=== PATIENT | female | born 1995 | race Two or more races ===

== ENCOUNTER 2019-05-03 21:17 | Emergency (ER) | payer OTHER ==
--- NOTE | 2019-05-03 23:15 | ED ---
Syncope/Near Syncope - HPI Summary HPI Summary: This patient is a 23 year old female presenting to [facility] with a chief complaint of syncope one hour ago. She states she was at dinner when she experienced dizziness, blurred vision, skin diaphoresis, muffled hearing for about 5 minutes and then passed out. She denies CP, SOB, and vomiting. She states she feels good now but reports a minor headache. - History Of Current Complaint Chief Complaint: EDSyncope Time Seen by Provider: 05/03/19 22:11 Hx Obtained From: Patient Onset/Duration: Sudden Onset, Lasting Minutes Context: Unwitnessed Associated Signs And Symptoms: Diaphoresis, Dizzy, Headache - Allergies/Home Medications Allergies/Adverse Reactions: Allergies Allergy/AdvReac Type Severity Reaction Status Date / Time No Known Allergies Allergy Verified 05/03/19 21:23 Home Medications: Home Medications NK [No Home Medications Reported] 05/03/19 [History Confirmed 05/03/19] PMH/Surg Hx/FS Hx/Imm Hx Cardiovascular History: Denies: Hx Coronary Artery Disease - Immunization History Immunizations Up to Date: Yes Infectious Disease History: No Infectious Disease History: Denies: Traveled Outside the [place] in Last 30 Days - Family History Known Family History: Negative: Cardiac Disease, Hypertension - Social History Alcohol Use: Weekly Substance Use Type: Reports: Marijuana Smoking Status (MU): Former Smoker Review of Systems Positive: Skin Diaphoresis. Negative: Fever Positive: Blurred Vision, Other - Muffled hearing Negative: Chest Pain Negative: Shortness Of Breath Negative: Vomiting Neurological: Other - Dizziness Positive: Headache, Syncope All Other Systems Reviewed And Are Negative: Yes Physical Exam - Summary Physical Exam Summary: General: Well-developed, Well-nourished FEMALE. No acute distress. HEENT: Normocephalic, Atraumatic. Eyes: Conjuctiva normal, PERRL. Ears: TMs within normal limits. Nares: (-) discharge, (-) erythema. Oropharynx: Clear, mucous membranes moist, (-) exudates. Neck: Soft, FROM, (-) lymphadenopathy, (-) thyromegaly, (-) JVD. Cardiovascular: Normal sinus rhythm, (-) murmur. Lungs: Clear to auscultation bilaterally (-) wheezes, (-) rales, (-) rhonchi. Abdomen: Soft, non-tender, non-distended, (-) organomegaly, normal bowel sounds. Back: (-) CVA tenderness Extremities: No edema. Skin: Warm, dry, (-) rash. Neuro: Alert and oriented x3, no focal deficits. Psychiatric: Mood normal, affect normal. Triage Information Reviewed: Yes Vital Signs On Initial Exam: Initial Vitals Temp Pulse Resp BP Pulse Ox 97.2 F 58 16 117/72 97 05/03/19 21:19 05/03/19 21:19 05/03/19 21:19 05/03/19 21:19 05/03/19 21:19 Vital Signs Reviewed: Yes Procedures - Sedation Patient Received Moderate/Deep Sedation with Procedure: No Diagnostics - Vital Signs Vital Signs Temp Pulse Resp BP Pulse Ox 05/03/19 21:19 97.2 F 58 16 117/72 97 - Laboratory Result Diagrams: 05/03/19 23:35 05/03/19 23:35 Lab Statement: Any lab studies that have been ordered have been reviewed, and results considered in the medical decision making process. - EKG 2123 Cardiac Rate: Bradycardia - 52 BPM EKG Rhythm: Sinus Bradycardia Summary of EKG Findings: No STEMI. ED Provider has read and interpreted this EKG. Course/Dx Course Of Treatment: This patient is a 23 year old female presenting to [facility] with a chief complaint of syncope one hour ago. Physical Exam, Labs and EKG were unremarkable. A plan for discharge was discussed with the patient and she was agreeable with this plan. - Diagnoses Provider Diagnoses: Syncope Discharge ED - Sign-Out/Discharge Documenting (check all that apply): Patient Departure - Discharge - Discharge Plan Condition: Stable Disposition: HOME Patient Education Materials: Syncope (DC) Referrals: No Primary Care Phys,NOPCP [Primary Care Provider] - Additional Instructions: Return to ED with new or worsening symptoms. - Billing Disposition and Condition Condition: STABLE Disposition: Home - Attestation Statements Document Initiated by Scribe: Yes Documenting Scribe: Roge Arndt Provider For Whom Allan is Documenting (Include Credential): Araceli Salinas MD Scribe Attestation: Roge Chun scribed for Araceli Salinas MD on 05/04/19 at 0304. Scribe Documentation Reviewed: Yes Provider Attestation: The documentation as recorded by the scribe, Roge Arndt accurately reflects the service I personally performed and the decisions made by me, Araceli Salinas MD Status of Scribzulma Document: Viewed
[2019-05-03 23:40] LABS: ABS Lymphocytes 1.5 10^3/ul (1.0-4.8); ABS Monocytes 0.5 10^3/ul (0-0.8); ABS Neutrophils 8.4 10^3/ul (1.5-7.7); Eosinophil % 0.4 %; Hematocrit 39 % (35-47); Hemoglobin 12.7 g/dL (12.0-16.0); Lymphocyte % 14.1 %; Mean Corpuscular HGB Conc 33 g/dL (31-36); Mean Corpuscular Hemoglobin 31 pg (27-31); Mean Corpuscular Volume 95 fL (80-97); Mean Platelet Volume 9.4 fL (7.4-10.4); Nucleated Red Blood Cells % 0.1; Platelet Count 311 10^3/uL (150-450); Red Blood Count 4.07 10^6 /uL (3.70-4.87); Red Cell Distribution Width 13 % (10-15); White Blood Count 10.5 10^3/uL (3.5-10.8)
[2019-05-03 23:58] LABS: ALT 26 U/L (7-52); AST 21 U/L (13-39); Albumin 4.2 g/dL (3.2-5.2); Albumin/Globulin Ratio 1.9 (1-3); Alkaline Phosphatase 57 U/L (34-104); Anion Gap 7 mmol/L (2-11); BUN/Creatinine Ratio 20.3 (8-20); Blood Urea Nitrogen 13 mg/dL (6-24); CO2 Carbon Dioxide 27 mmol/L (22-32); Calcium 9.4 mg/dL (8.6-10.3); Chloride 103 mmol/L (101-111); EGFR African American 141.7 (>60); EGFR Non-African American 117.1 (>60); Globulin 2.2 g/dL (2-4); Glucose 107 mg/dL (70-100); Sodium 137 mmol/L (135-145); Total Protein 6.4 g/dL (6.4-8.9)
[2019-05-04 00:28] LABS: Alcohol < 10 mg/dL (<10)
[2019-05-04 00:45] LABS: TSH (Thyroid Stimulating Horm) 1.17 mcIU/mL (0.34-5.60)
[2019-05-04 01:21] LABS: Urine Appearance Clear; Urine Bacteria Absent (Absent); Urine Bilirubin Negative (Negative); Urine Blood 2+ (Negative); Urine Color Yellow; Urine Glucose Negative (Negative); Urine Ketones Negative (Negative); Urine Nitrite Negative (Negative); Urine Protein Negative (Negative); Urine Red Blood Cell Trace(0-2/hpf) (Absent); Urine Specific Gravity 1.005 (1.010-1.030); Urine Squamous Epithelial Cell Present (Absent); Urine Urobilinogen Negative (Negative); Urine White Blood Cell Trace(0-5/hpf) (Absent)
[2019-05-04 01:23] LABS: Urine Benzodiazepine Screen None Detected (None Detect); Urine Opiates Screen None Detected (None Detect)
[2019-05-04 02:02] VITALS: BP 103/61
== END 2019-05-04 01:55 | disposition home or self-care (01) ==
LOC: ED 21:17
DX: R55 Syncope and collapse (principal); R42 Dizziness and giddiness; R51 Headache; Z87.891 Personal history of nicotine dependence; H53.8 Other visual disturbances
CPT/HCPCS: 36415; 80053; 80307; 80320; 81003; 81015; 83605; 83735; 84443; 84484; 85025; 87086; 93005; 99282; G0480